=== PATIENT | male | born 1945 | race Caucasian/White ===

== ENCOUNTER → 2016-03-06 | Outpatient (CLI) | payer MEDICARE, OTHER ==
[~2016-03-06] MED LIST: AFRI0.052; AFRI0.056; ALDA25TA2 PO; ALLO100T PO; ALLO15TA PO; ASPI81TA85 PO; CARV3.12 PO; CARV6.25 PO; CEFD300CAP PO; CIPR500T89 PO; CORD200T PO; CORE6.25 PO; DESL5TAB4 PO; DOXY10CA PO; ELIQ5TAB PO; FLAG500T PO; FLON1SPR; FOSI10TA10 PO; FURO40TA2 PO; GLUC15002 PO; GLUC750T22 PO; K-TA10TA2 PO; LASI40TA PO; LEVA500T PO; OMEP40CA2 PO; OXYC-517 PO; PRIL20CA9 PO; PRIN5TAB PO; PROT1TAB2 PO; SENN-23 PO; SIMV20TA2 PO; SIMV40TA2 PO; SING10TA32 PO; TYLE650T30 PO; VALS1TAB49 PO; XARE10TA PO; ZYLO300T4 PO; ZYRT10TA2 PO
--- NOTE | 2016-03-06 12:30 | REP ---
PA and lateral chest: Comparison is 01/21/2016. There is cardiomegaly, unchanged. There is a triple lead biventricular pacemaker, unchanged. Previously there were interstitial and alveolar infiltrates. These have decreased and are predominantly interstitial infiltrates today. No pleural effusion. The kelly, mediastinum, bony thorax are unremarkable. Impression: Improved bilateral infiltrates. Cardiomegaly and triple lead biventricular pacemaker are again noted, unchanged Signed by Juan Nunez MD 03/06/2016 12:21 P
== END ==
LOC: M RAD 11:15
PROVIDERS: ATTEND Internal Medicine Pulmonary Disease
DX: R91.8 Other nonspecific abnormal finding of lung field (principal); I51.7 Cardiomegaly

== ENCOUNTER → 2016-04-20 | Outpatient (CLI) | payer MEDICARE, OTHER ==
--- NOTE | 2016-04-20 15:24 | REP ---
CHEST X-RAY: Two views. HISTORY: Abnormal lung butcher. COMPARISON STUDY: March 06, 2016. FINDINGS: A multilead pacemaker is seen in the right heart via the left side as before. Heart is mildly enlarged unchanged. Pulmonary vasculature is somewhat cephalized. Interstitial markings are prominent bilaterally and diffusely. This is a little more prominent than on the prior study. There is no evidence of pleural effusion. No focal infiltrate is seen. IMPRESSION: Cardiomegaly. Pacemaker. Diffusely increased interstitial markings, somewhat more pronounced than on the March 06, 2016 prior study. Interstitial edema versus chronic interstitial disease. No pleural effusion noted. Signed by Jorge Harley MD 04/20/2016 05:39 P
== END ==
LOC: M SMT 11:44
PROVIDERS: ATTEND Internal Medicine Pulmonary Disease
DX: R91.8 Other nonspecific abnormal finding of lung field (principal); I51.7 Cardiomegaly; Z95.0 Presence of cardiac pacemaker

== ENCOUNTER → 2016-06-05 | Outpatient (CLI) | payer MEDICARE, OTHER ==
--- NOTE | 2016-06-05 13:10 | REP ---
CHEST, TWO VIEWS: Two views of the chest are performed and compared to multiple prior exams most recently 04/20/2016. There are diffuse increased interstitial markings which are stable. There is mild cardiomegaly. Mediastinal silhouette is unchanged. Left dual lead pacemaker is again noted. There are degenerative changes of the spine. IMPRESSION: Stable exam. Signed by Juan Ross MD 06/05/2016 05:43 P
== END ==
LOC: M SMT 11:24
PROVIDERS: ATTEND Internal Medicine Pulmonary Disease
DX: R91.8 Other nonspecific abnormal finding of lung field (principal)

== ENCOUNTER → 2016-07-18 | Outpatient (REF) | payer MEDICARE, OTHER | LOC: M LAB REF 17:33 | PROVIDERS: ATTEND Otolaryngology | DX: D37.05 Neoplasm of uncertain behavior of pharynx (principal) ==

== ENCOUNTER → 2016-07-24 | Outpatient (CLI) | payer MEDICARE, OTHER ==
--- NOTE | 2016-07-24 16:18 | REP ---
CT CHEST WITHOUT CONTRAST: REASON: Followup alveolar opacities. COMPARISON: Multiple, the latest 10/19/2015. There is mediastinal and suspected right hilar adenopathy status quo. The mediastinal adenopathy is particular to the right paratracheal region. There are no pleural or pericardial effusions. There is no change in a appearance of the imaged upper abdomen or imaged osseous structures. Evaluation of the lung butcher again show scattered interstitial and particularly air space opacities but significantly improved compared to the prior exam. Although these opacities could obscure a small but significant nodule or small spiculated lesion, none are seen. IMPRESSION:1. Adenopathy as described above. 2. Lung field improvement as described above. Continued surveillance is suggested. Signed by Mendez Littlejohn DO 07/24/2016 05:04 P
== END ==
LOC: M RAD 12:46
PROVIDERS: ATTEND Internal Medicine Pulmonary Disease
DX: R91.8 Other nonspecific abnormal finding of lung field (principal)

== ENCOUNTER → 2016-07-25 | Outpatient (CLI) | payer MEDICARE, OTHER ==
[~2016-07-25] MED LIST changes: +AMOX500C PO; +CIPR-249 PO; -CIPR500T89 PO; +DOXY100T2 PO; -DOXY10CA PO; -FOSI10TA10 PO; +FOSI10TA2 PO; +LEVA1TAB2 PO; -LEVA500T PO; +SILV40CR EXT
[2016-07-25 14:18] LABS: BLOOD UREA NITROGEN 24 MG/DL (7-18); CREATININE FOR GFR 1.01 MG/DL (0.70-1.30); GLOMERULAR FILTRATION RATE > 60.0 (>49)
== END ==
LOC: M LAB 12:07
PROVIDERS: ATTEND Otolaryngology
DX: D37.05 Neoplasm of uncertain behavior of pharynx (principal)

== ENCOUNTER → 2016-07-25 | Outpatient (CLI) | payer MEDICARE, OTHER | LOC: M LAB 12:10 | PROVIDERS: ATTEND Urology | DX: Z85.46 Personal history of malignant neoplasm of prostate (principal); D37.05 Neoplasm of uncertain behavior of pharynx ==

== ENCOUNTER → 2016-07-27 | Outpatient (CLI) | payer MEDICARE, OTHER ==
[~2016-07-27] MED LIST changes: -AMOX500C PO; -CIPR-249 PO; +CIPR500T89 PO; -DOXY100T2 PO; +DOXY10CA PO; +FOSI10TA10 PO; -FOSI10TA2 PO; +ISOVUE-370 76% 100ML VIAL (Q9967) As Ordered ONE; -LEVA1TAB2 PO; +LEVA500T PO; -SILV40CR EXT
--- NOTE | 2016-07-27 11:49 | REP ---
REASON: Pharyngeal neoplasm. COMPARISON: None. CONTRAST: 100 mL Isovue 370. There is abnormal soft tissue enhancement and thickening in the right neck supraglottic region which is deviating the airway to the left. This area measures approximately 2.8 x 2.3 x 2.9 cm. This mass fills a portion of the right parapharyngeal space and abuts the medial right environmental engineering manager space. The pharyngomucosal space is compressed by the afore mentioned mass on the right. The right carotid and parotid spaces are uninsulted. The prevertebral and paraspinal component of the perivertebral space are within normal limits. The suprahyoid left neck spaces are unremarkable. The infrahyoid neck spaces are within normal limits including the posterior cervical space. IMPRESSION: Enhancing right parapharyngeal/supraglottic mass as described above. Signed by Mendez Littlejohn DO 07/27/2016 12:07 P
== END ==
LOC: M RAD 08:04
PROVIDERS: ATTEND Otolaryngology
DX: D37.05 Neoplasm of uncertain behavior of pharynx (principal)
CPT/HCPCS: 70491; Q9967

== ENCOUNTER → 2016-08-16 | Outpatient (CLI) | payer MEDICARE, OTHER ==
[~2016-08-16] MED LIST changes: +AMOX500C PO; +CIPR-249 PO; -CIPR500T89 PO; +DOXY100T2 PO; -DOXY10CA PO; -FOSI10TA10 PO; +FOSI10TA2 PO; -ISOVUE-370 76% 100ML VIAL (Q9967) As Ordered ONE; +LEVA1TAB2 PO; -LEVA500T PO; +SILV40CR EXT
--- NOTE | 2016-08-16 21:40 | REP ---
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 Comparisons: Comparison CT study of the chest and neck from July of 2016. TECHNIQUE: 48 minutes following the intravenous injection of a 9.8 mCi dose of F-18 FDG, three-dimensional PET scintigraphy is acquired from the skull base to the proximal thighs. Triplanar noncontrast CT scanning is acquired through the same anatomic range for attenuation correction, and image registration with scan parameters optimized to minimize radiation exposure to the patient. PET scintigraphy and CT datasets were fused and displayed on a workstation with multiplanar and projection display capability. PET/CT Findings: The known right tonsillar mass is quite hypermetabolic with maximum standard uptake value 18.8. The hypermetabolic mass lesion measures 2.9 cm in greatest diameter. This corresponds to the soft tissue mass in the right tonsillar soft tissues on recent CT study. There is no abnormal agustín uptake seen. There is mild tracer uptake in the left tonsil soft tissues without evidence of mass effect. Maximum standard uptake value here is 4.7. This may be normal variant. No other abnormal head and neck uptake is seen. In the chest, there is a right pretracheal lymph node, which is hypermetabolic showing maximum standard uptake value of 4.8. There is AP window region hypermetabolic agustín uptake, maximum standard uptake value 3.3. These lymph nodes are visible on recent CT study. There is mildly hypermetabolic subcarinal uptake in the same level of avidity, SUV 3.3. Right hilar agustín uptake, maximum standard uptake value 3.5. There is some nonhypermetabolic pulmonary parenchymal uptake in the lower lobes bilaterally, which is patchy. This corresponds with some interstitial infiltrate pattern in the lung butcher fairly extensively on accompanying CT. Interstitial disease is also noted on July 24, 2016 CT. These changes are nonspecific, but may be inflammatory. I note that there was adenopathy even more prominent along with bilateral pleural effusions and some interstitial changes in the lungs on chest CT study from October 2013. Granulomatous disease such as sarcoidosis is a possibility for the chest findings. In the abdomen and pelvis, normal hepatic, splenic, gastrointestinal and genitourinary FDG accumulation is seen. No abnormal abdominal or pelvic FDG accumulation is appreciated. Impression: The patient's known malignant mass in the right tonsillar soft tissues is quite hypermetabolic. No abnormal agustín uptake is seen. There is equivocal uptake in the contralateral tonsil on the left. There are multiple agustín foci and some parenchymal uptake in the chest, mediastinum, and hilar regions bilaterally. This is nonspecific and may be inflammatory, granulomatous, or conceivably although less likely, metastatic. Signed by Jorge Harley MD 08/17/2016 09:33 A
== END ==
LOC: M PLARAD 10:49
PROVIDERS: ATTEND Physician Assistant Medical
DX: C14.0 Malignant neoplasm of pharynx, unspecified (principal)
CPT/HCPCS: 78815; A9552

== ENCOUNTER → 2016-08-22 | Outpatient (CLI) | payer MEDICARE, OTHER ==
--- NOTE | 2016-08-23 08:32 | RADONC ---
RADIATION ONCOLOGY CONSULTATION NOTE: DATE: 08/22/2016 CHART NUMBER: [id number]. DIAGNOSIS: Tonsillar cancer. STAGE: II, T2N0Mx ECOG PERFORMANCE STATUS: 1. CONSULTATION NOTE: Mr. 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 HISTORY OF PRESENT ILLNESS: The patient was in his usual state of health but began developing some difficulty with chewing and swallowing. Reports that his teeth have been loose and falling out in the right molar area. The patient was referred to Dr. Woods who found an ulcerative lesion measuring approximately 3 cm in the patient's right anterior tonsillar pillar. On 07/18/2016, the patient underwent a right oropharyngeal mass biopsy and pathology revealed a papillary squamous cell carcinoma, which was HPV positive. A CT scan was done on 08/16/2016 that showed a 2.8 cm x 2.9 cm x 2.3 cm hypermetabolic area in the right tonsillar region. The SUV value was 18.8. There was no abnormal agustín uptake noted. There was some mild tracer uptake in the left tonsillar soft tissues without evidence of mass effect. The maximum standard uptake value was 4.7 and was thought to be a normal variant. Of note, there were right pretracheal lymph nodes, which were hypermetabolic with an SUV value of 4.8. It was an AP window region hypermetabolic agustín uptake as well with a SUV value of 3.3. There was some subcarinal uptake within an SUV value of 3.3 and a right hilar agustín uptake with an SUV value of 3.5. There was noted to be interstitial change in the lungs on a CT scan done in October 2013. Granulomatous disease such as sarcoidosis was a possibility for the chest findings. These were not thought to be metastatic. The patient is now presenting to us for discussion of his therapeutic options including definitive radiation therapy with IMRT/IGRT combined with chemotherapy. PAST MEDICAL HISTORY: The patient's past medical history is positive for a pacemaker. He has hypertension and arthritis. He had prostate cancer in the past with a prostatectomy. ALLERGIES: The patient is allergic to LATEX and AMIODARONE. SOCIAL HISTORY: The patient has smoked 1 pack of cigarettes a day for 38 years. He quit in 2006. He does not abuse alcohol. FAMILY HISTORY: The patient's family history is positive for a father with lung cancer. REVIEW OF SYSTEMS: The patient's review of systems is positive for dental problems, generalized weakness in his arms and legs, some anxiety and physical limitations secondary to upper leg weakness. He denies nausea, vomiting, fevers, chills, night sweats, diplopia, headaches, anorexia, weight loss, visual disturbances, chest pain, shortness of breath, urinary or bowel difficulties, bone pain or neurological problems. PHYSICAL EXAMINATION: The patient is a well-developed, well-nourished, white male in no acute distress. HEENT exam is normocephalic, atraumatic. Extraocular movements are intact. There is a 3 cm right tonsillar lesion, which appears to extend to the base of tongue. It is ulcerated. There are no other lesions present in the patient's oral cavity. He has poor dentition for the few remaining teeth. There is no palpable preauricular, cervical, supraclavicular, infraclavicular, or axillary lymphadenopathy present. His lungs are clear to auscultation and percussion. His heart has a regular rate and rhythm. His abdomen is benign with no splenomegaly, masses or tenderness. MEDICAL NECESSITY: IMRT/IGRT is clinically indicated for the highly conformal dose planning required. The target volume is in close proximity to critical structures, such as the normal brain, brainstem, eyes, optic nerves, spinal cord, parotid glands, and mandible. The volume of interest must be covered with narrow margins to adequately protect immediately adjacent structures. The plan requires interpretation of complex testing such as CT localization. As noted above, special planning (IMRT) and localizing (IGRT) is required and essential to maximally protect sensitive normal tissue structures which cannot be accomplished using conventional 3-dimensional planning. IMAGING: I have personally reviewed the patient's PET scan done 08/16/2016, which shows the hypermetabolic right tonsillar mass. ASSESSMENT: Clearly, Mr. Katz is a candidate for definitive external beam radiation therapy and I have so informed him. I have discussed with the patient in detail the potential benefits as well as possible acute and chronic sequelae of external beam radiation therapy. We discussed logistics of treatment planning, simulation and subsequent fractionated daily radiation treatments. I believe this patient would be a good candidate for definitive treatment with IMRT/IGRT as we would be able to conform our therapy to avoid critical structures such as his spinal column as well as optic nerves, eyes and optic chiasm. Prior to initiation of radiation, his dental work has to be taken care of. He does have rotten teeth, which are loose. Should they fall out or require extraction after the radiation, he would be at risk for radio osteonecrosis . We are therefore setting him up with our nurse navigator to get him scheduled for dental consultation and extraction of the remaining teeth. I also believe this patient would benefit from the placement of a PEG feeding tube. We are setting him up with a consultation with the surgeon to discuss that as well. In addition, I have placed the patient on our discussion list for multidisciplinary tumor conference. Final recommendations will be made at that time. Further, I have set him up to see our medical oncologist to obtain their expert opinion as well. Once these have all been achieved, we will work closely together to coordinate his care. Thank you for allowing us to participate in the care of this very pleasant gentleman. If I could be of any further assistance or provide you with any information, please feel free to contact me anytime. As always, with warm regards. cc: MD Ramesh Bond MD [place], MD
== END ==
LOC: M ONCR 14:13
PROVIDERS: ATTEND Radiology Radiation Oncology
DX: C14.0 Malignant neoplasm of pharynx, unspecified (principal)

== ENCOUNTER → 2016-09-04 | Outpatient (CLI) | payer MEDICARE, OTHER ==
[2016-09-04 10:41] LABS: MEAN CORPUSCULAR HEMOGLOBIN 31.2 pg (27.0-33.0); MEAN CORPUSCULAR HGB CONC 33.7 g/dl (32.0-36.5); MEAN CORPUSCULAR VOLUME 92.5 fl (80.0-96.0); RED CELL DISTRIBUTION WIDTH 13.2 % (11.5-14.5); WHITE BLOOD COUNT 7.4 K/mm3 (4.0-10.0)
[2016-09-04 11:08] LABS: ALBUMIN 3.4 GM/DL (3.2-5.2); ALBUMIN/GLOBULIN RATIO 0.74 (1.00-1.93); ALKALINE PHOSPHATASE 102 U/L (45-117); ALT/SGPT 25 U/L (12-78); ANION GAP 7 MEQ/L (8-16); AST/SGOT 26 U/L (15-37); BILIRUBIN,TOTAL 0.5 MG/DL (0.2-1.0); BLOOD UREA NITROGEN 26 MG/DL (7-18); CALCIUM LEVEL 8.8 MG/DL (8.8-10.2); CARBON DIOXIDE LEVEL 27 MEQ/L (21-32); CHLORIDE LEVEL 104 MEQ/L (98-107); CREATININE FOR GFR 1.01 MG/DL (0.70-1.30); GLOMERULAR FILTRATION RATE > 60.0 (>49); GLUCOSE, FASTING 117 MG/DL (80-110); POTASSIUM SERUM 4.3 MEQ/L (3.5-5.1); SODIUM LEVEL 138 MEQ/L (136-145)
--- NOTE | 2016-09-04 12:53 | REP ---
PA and lateral chest: Comparisons are the PA and lateral chest studies of 06/05/2016 and 08/17/2014. There is a chest CT dated 07/24/2016. The lung butcher are clear. Cardiac size is mildly enlarged, unchanged. There is a triple lead biventricular pacemaker. The kelly, mediastinum, and bony thorax are unchanged and unremarkable. Impression: There are no acute cardiopulmonary findings. There are no masses, nodules or effusions. There is mild cardiomegaly and pacemaker as described. Signed by Juan Nunez MD 09/04/2016 12:45 P
== END ==
LOC: M WUC 09:32
PROVIDERS: ATTEND Family Medicine
DX: C09.9 Malignant neoplasm of tonsil, unspecified (principal); I51.7 Cardiomegaly; Z95.0 Presence of cardiac pacemaker

== ENCOUNTER 2016-09-13 07:40 | Day surgery (SDC) | payer MEDICARE, OTHER ==
[~2016-09-13] VITALS: Ht 175.3 cm; Wt 87.5 kg
[~2016-09-13 07:40] MED LIST changes: -AMOX500C PO; -SILV40CR EXT
[2016-09-13] MEDS ORDERED: dexameTHASONE 4 MG/ML 1ML VIAL (J1100) IV ONE (08:00)
[2016-09-13] MEDS ORDERED: LIDOCAINE 1% MDV 20ML VIAL SC PRN (08:00)
[2016-09-13] MEDS ORDERED: LR 1,000 ML IV ONE (08:00)
[2016-09-13] MEDS ORDERED: LIDOCAINE W/EPINEPHRINE 1% 20ML VIAL As Ordered ONE (09:44)
[2016-09-13] MEDS ORDERED: OXYMETAZOLINE NASAL SPRAY (AFRIN) As Ordered ONE (09:44)
[2016-09-13] MEDS ORDERED: MIDAZOLAM INJ 2 MG/2 ML VIAL (J2250) As Ordered ONE (10:43)
[2016-09-13] MEDS ORDERED: ROCURONIUM BROMIDE 50 MG/5 ML VIAL/SYRINGE As Ordered ONE (10:43)
[2016-09-13] MEDS ORDERED: fentaNYL 250 MCG/5 ML INJECTION (J3010) As Ordered ONE (10:43)
[2016-09-13] MEDS ORDERED: LIDOCAINE 2% INJ 100 MG/5 ML SDV (FOR ANES.) As Ordered ONE (10:44)
[2016-09-13] MEDS ORDERED: PROPOFOL 200 MG/20 ML VIAL As Ordered ONE (10:44)
[2016-09-13] MEDS ORDERED: ONDANSETRON 4MG/2ML VIAL (J2405) As Ordered ONE (10:44)
[2016-09-13] MEDS ORDERED: PHENYLephrine HCL 500 MCG/5 ML (100MCG/ML) SYRINGE (J2370) As Ordered ONE ×3 (10:48→11:15)
[2016-09-13] MEDS ORDERED: HYDROcodone/APAP LIQUID 7.5-325MG 15ML UDC (LORTAB ELIXIR) As Ordered ONE (12:12)
[2016-09-13] MEDS ORDERED: fentaNYL 100 MCG/2 ML INJECTION (J3010) IV PRN (12:15)
[2016-09-13] MEDS ORDERED: LR 1,000 ML IV SCH ×2 (12:15)
[2016-09-13] MEDS ORDERED: ONDANSETRON 4MG/2ML VIAL (J2405) IV PRN (12:15)
[2016-09-13] MEDS ORDERED: HYDROcodone/APAP LIQUID 7.5-325MG 15ML UDC (LORTAB ELIXIR) PO ONE (12:30)
[2016-09-13 14:13] VITALS: BP 134/66
[2016-09-18] MEDS ORDERED: AMOX500C PO (10:44)
--- NOTE | 2016-10-05 08:16 | RO ---
DATE OF PROCEDURE: 09/13/2016 PREOPERATIVE DIAGNOSIS: Right oropharyngeal mass suspicious for malignancy. POSTOPERATIVE DIAGNOSIS: Right oropharyngeal mass suspicious for malignancy. PROCEDURE PERFORMED: Direct suspension microlaryngoscopy with biopsy of the right and left tonsils. SURGEON: Foreign Woods MD DIRT BIKE RACER: ANESTHESIA: General. CLINICAL PREAMBLE: This 71-year-old man presented to the office with a mass of the right tonsil region. Biopsy showed evidence of squamous cell carcinoma cells without clear evidence of deep invasion through the basement membrane. PET scan revealed hypermetabolic activity over the right tonsil as well as over the left tonsil region. Management options including direct suspension microlaryngoscopy with biopsy of both tonsil areas have been discussed with the patient. The patient understood and consented. DESCRIPTION OF PROCEDURE: The patient was identified in preoperative holding and brought to the operating room in stable condition. In supine position on the operating table, the patient received general anesthesia followed by orotracheal intubation without incident. The patient was prepped and draped in the usual fashion for the procedure. Bimanual palpation of the oral tongue, buccal mucosa , posterior pharyngeal was unremarkable. A firm mass was palpated over the right tonsil region extending down to near the junction of the base of the tongue. Palpation of the left tonsil was unremarkable for discrete nodule. A cystic- like mass was however palpated along the inferior aspect of the left tonsil region. The Dedo-Pilling laryngoscope was then introduced. Inspection of mucosa in the oral cavity and oropharynx revealed a fungating mass over the right tonsil region involving the anterior and posterior tonsil pillar. There was no evidence of direct involvement of the base of tongue. The left tonsil was unremarkable in appearance. Inspection of the mucosa of the supraglottis, glottis and the hypopharynx was negative for mucosal lesion. The Arlene-Ramos mouth gag was then inserted and suspended. The biopsy was obtained from the right tonsil mass. The initial biopsy was sent for intra-op frozen section which was reported to be carcinoma with no invasion of the deep region. Additional biopsy was obtained from the tonsil mass. It was sent for the permanent section. A cystic-like mass was identified and marsupialized over the left tonsil region. There was no other suspicious lesion noted. Complete hemostasis was achieved at the end of the procedure. Estimated blood loss was less than 10 mL. No complications encountered. Sponge and instrument counts were correct. General anesthesia was reversed and the patient was extubated and brought to the recovery room in stable condition. LIZZY
[2016-11-20] MEDS ORDERED: SILV40CR EXT (09:03)
== END 2016-09-13 14:13 | disposition home or self-care (01) ==
LOC: M SDC 07:40
PROVIDERS: ATTEND Otolaryngology
DX: C09.9 Malignant neoplasm of tonsil, unspecified (principal); I11.0 Hypertensive heart disease with heart failure; C61 Malignant neoplasm of prostate; L30.9 Dermatitis, unspecified; I48.91 Unspecified atrial fibrillation; R06.02 Shortness of breath; M79.1 Myalgia; R06.83 Snoring; J30.2 Other seasonal allergic rhinitis; Z88.8 Allergy status to other drugs, medicaments and biological substances; Z91.040 Latex allergy status; Z79.899 Other long term (current) drug therapy; Z95.810 Presence of automatic (implantable) cardiac defibrillator
CPT/HCPCS: 31535; 88305; 88331; J1100; J2250; J2370; J2405; J3010

== ENCOUNTER 2016-09-27 10:34 | Outpatient (RCR) | payer MEDICARE, OTHER ==
[~2016-09-27 10:34] MED LIST changes: -SILV40CR EXT
--- NOTE | 2016-09-27 13:25 | RADONC ---
RADIATION ONCOLOGY SIMULATION NOTE: DATE: 09/27/2016 CHART NUMBER: [id number] Mr. Katz was taken to the CT scan for CT simulation of his head and neck field. CT was accomplished without difficulty or discomfort. Radiation treatment planning is underway and radiation treatments will begin subsequently. An immobilization device including a mask was created again without difficulty or discomfort. It will be used throughout the course of treatment. I was physically present throughout the course of CT simulation.
[2016-11-20] MEDS ORDERED: SILV40CR EXT (09:03)
== END 2016-10-05 ==
LOC: M ONCR 10:34
PROVIDERS: ATTEND Radiology Radiation Oncology
DX: C09.9 Malignant neoplasm of tonsil, unspecified (principal)

== ENCOUNTER → 2016-09-27 | Outpatient (CLI) | payer MEDICARE, OTHER ==
[~2016-09-27] MED LIST changes: +AMOX500C PO; +SILV40CR EXT
== END ==
LOC: M RAD 10:21
PROVIDERS: ATTEND Radiology Radiation Oncology
DX: C09.9 Malignant neoplasm of tonsil, unspecified (principal)

== ENCOUNTER 2016-10-02 05:52 | Day surgery (SDC) | payer MEDICARE, OTHER ==
[~2016-10-02] VITALS: Ht 175.3 cm; Wt 87.1 kg
[2016-10-02] MEDS ORDERED: LR 1,000 ML IV SCH ×2 (06:15→08:45)
[2016-10-02] MEDS ORDERED: LIDOCAINE VISCOUS 2% SOLN 15ML UDC As Ordered ONE (07:15)
[2016-10-02] MEDS ORDERED: LIDOCAINE 1% MDV 20ML VIAL As Ordered ONE (07:15)
[2016-10-02] MEDS ORDERED: THROMBIN SOLN 5,000 UNITS VIAL As Ordered ONE (07:15)
[2016-10-02] MEDS ORDERED: EPINEPHrine 1MG/10ML SYRINGE 1.5IN As Ordered ONE (07:15)
[2016-10-02] MEDS ORDERED: MIDAZOLAM INJ 2 MG/2 ML VIAL (J2250) As Ordered ONE (07:20)
[2016-10-02] MEDS ORDERED: LIDOCAINE 2% INJ 100 MG/5 ML SDV (FOR ANES.) As Ordered ONE (07:20)
[2016-10-02] MEDS ORDERED: fentaNYL 250 MCG/5 ML INJECTION (J3010) As Ordered ONE (07:20)
[2016-10-02] MEDS ORDERED: PROPOFOL 200 MG/20 ML VIAL As Ordered ONE (07:20)
[2016-10-02] MEDS ORDERED: ROCURONIUM BROMIDE 50 MG/5 ML VIAL/SYRINGE As Ordered ONE (07:20)
[2016-10-02] MEDS ORDERED: ETOMIDATE INJ 20MG/10ML VIAL As Ordered ONE (07:51)
[2016-10-02] MEDS ORDERED: ONDANSETRON 4MG/2ML VIAL (J2405) As Ordered ONE (07:55)
[2016-10-02] MEDS ORDERED: NEOSTIGMINE 1MG/ML 5 ML SYRINGE (J2710) As Ordered ONE (07:55)
[2016-10-02] MEDS ORDERED: GLYCOPYRROLATE INJ 0.2 MG/ML 2 ML VIAL As Ordered ONE (07:56)
--- NOTE | 2016-10-02 08:40 | RO ---
DATE OF PROCEDURE: 10/02/2016 PREOPERATIVE DIAGNOSIS: Mediastinal and hilar adenopathy. POSTOPERATIVE DIAGNOSIS: Mediastinal and hilar adenopathy. PROCEDURE: Bronchoscopy with endobronchial ultrasound. FINDINGS: Normal smokers airway with mediastinal adenopathy under endobronchial ultrasound. PROCEDURALIST: Yony Kennedy DO SLAB LIFTING ENGINEER: None. ANESTHESIA: General. Please refer to their records. No estimated blood loss. No drains. No observed complications. SPECIMENS OBTAINED: 1. Fine needle aspiration (FNA) subcarinal node. 2. FNA right pretracheal node 4R. DESCRIPTION OF PROCEDURE: After informed consent was reviewed with the patient in the preoperative area he was brought back to OR number eight. General anesthesia was initiated with an 8.5 endotracheal tube. Bronchoscope was then inserted with Cetacaine spray. Additional time out was performed with two patient identifiers, identifying correct site and correct procedure. All airways were viewed, the trachea was midline. The mahesh was sharp without splaying. Right and left mainstem bronchus was normal. RB 1 through 10 and LB 1 through 10 was normal without endobronchial lesions. There was minimal amounts of clear mucus was circular banding and pitting. After inspection of the airway, the bronchoscope was removed and the endobronchial ultrasound was inserted. I first viewed the subcarinal node, which was enlarged to approximately 3.5 cm. Samples were taken of this lesion. On-site cytology was present. After adequate sampling of the subcarinal node, I then viewed the right pretracheal node in the 4R position. Samples were taken of this lymph node. I then viewed the right hilar region; however, I was unable to obtain samples due to a large vessel that was in front of the lymph node. After adequate hemostasis the bronchoscope was removed and the patient was extubated and is in recovery. There were no observed complications. [facility] CENTERJesus
[2016-10-02] MEDS ORDERED: ONDANSETRON 4MG/2ML VIAL (J2405) IV PRN (08:45)
[2016-10-02] MEDS ORDERED: fentaNYL 100 MCG/2 ML INJECTION (J3010) IV PRN (08:45)
[2016-10-02] MEDS ORDERED: PERCOCET 5MG/325MG TAB PO PRN (08:45)
--- NOTE | 2016-10-02 09:41 | REP ---
PORTABLE CHEST X-RAY: Single view. HISTORY: Postop. COMPARISON STUDY: September 04, 2016. Mild to moderate cardiac enlargement is seen. A multilead pacemaker is noted in the right heart via the left side. Oxygen delivery tubing is seen. Pulmonary vascular congestion is observed. There is some fissural thickening on the right. Interstitial markings are slightly prominent similar to the prior study. IMPRESSION: Cardiomegaly with vascular congestion consistent with some degree of CHF. No focal infiltrate. Prominent interstitial markings. Signed by Jorge Harley MD 10/02/2016 02:44 P
[2016-10-02 10:05] VITALS: BP 135/67
[2016-11-20] MEDS ORDERED: SILV40CR EXT (09:03)
== END 2016-10-02 10:15 | disposition home or self-care (01) ==
LOC: M SDC 05:52
PROVIDERS: ATTEND Internal Medicine Pulmonary Disease
DX: R91.8 Other nonspecific abnormal finding of lung field (principal); C14.0 Malignant neoplasm of pharynx, unspecified; R06.00 Dyspnea, unspecified; R94.2 Abnormal results of pulmonary function studies; E88.01 Alpha-1-antitrypsin deficiency; M10.9 Gout, unspecified; I48.91 Unspecified atrial fibrillation; I42.9 Cardiomyopathy, unspecified; R06.02 Shortness of breath; M54.9 Dorsalgia, unspecified; M79.1 Myalgia; R55 Syncope and collapse; T46.2X5S Adverse effect of other antidysrhythmic drugs, sequela; N18.3 Chronic kidney disease, stage 3 (moderate); I13.0 Hypertensive heart and chronic kidney disease with heart failure and stage 1 through stage 4 chronic kidney disease, or unspecified chronic kidney disease; E78.5 Hyperlipidemia, unspecified; C61 Malignant neoplasm of prostate; F41.9 Anxiety disorder, unspecified; I47.1 Supraventricular tachycardia; M16.10 Unilateral primary osteoarthritis, unspecified hip; I50.9 Heart failure, unspecified; J30.2 Other seasonal allergic rhinitis; J39.2 Other diseases of pharynx; Z88.8 Allergy status to other drugs, medicaments and biological substances; Z91.040 Latex allergy status; Z79.899 Other long term (current) drug therapy; Z87.891 Personal history of nicotine dependence; Z95.0 Presence of cardiac pacemaker; Z95.5 Presence of coronary angioplasty implant and graft
CPT/HCPCS: 31629; 31652; 71010; 88172; 88173; 88305; 88313; J2250; J2405; J2710; J3010

== ENCOUNTER 2016-10-06 12:18 | Outpatient (RCR) | payer MEDICARE, OTHER ==
--- NOTE | 2016-10-17 07:53 | RADONC ---
RADIATION ONCOLOGY PROGRESS NOTE: DATE: 10/16/2016 CHART NUMBER: [id number] Mr. Katz is presently at a dose of 800 cGy to his tonsil and is tolerating treatments quite well at this point with no complaints related to his radiation therapy. He is having no tonsil discomfort or other problems. REVIEW OF SYSTEMS: The patient's review of systems is noncontributory. He denies nausea, vomiting, fevers, chills, night sweats, diplopia, headaches, anxiety or depression, anorexia, weight loss, visual disturbances, chest pain, urinary or bowel difficulties, bone pain, or neurological problems. PHYSICAL EXAMINATION: The patient's skin is in good condition with no evidence of radiation change present. There is no moist or dry desquamation. The remainder of his physical exam remains unchanged. Mr. Katz is tolerating treatments quite well and radiation will continue as scheduled.
--- NOTE | 2016-10-24 06:17 | RADONC ---
RADIATION ONCOLOGY PROGRESS NOTE DATE: 10/23/2016 CHART NUMBER: [id number]. PROGRESS NOTE: Mr. Katz is presently at a dose of 1980 cGy to his right tonsil and 1800 cGy a to his right lymph nodes and is tolerating treatments quite well at this point with no complaints related to his radiation therapy other than some nauseousness. REVIEW OF SYSTEMS: The patient's review of systems is positive for nauseousness but is otherwise noncontributory. Denies nausea, vomiting, fevers, chills, night sweats, diplopia, headaches, anxiety or depression, anorexia, weight loss, visual disturbances, chest pain, urinary or bowel difficulties, bone pain, or neurological problems. PHYSICAL EXAMINATION: The patient's skin is in good condition with no evidence of radiation change present. There is no moist or dry desquamation. The remainder of his physical exam remains unchanged. Mr. Katz is tolerating treatments quite well and radiation will continue as scheduled.
--- NOTE | 2016-10-31 07:47 | RADONC ---
RADIATION ONCOLOGY PROGRESS NOTE: DATE: 10/30/2016 CHART NUMBER: [id number] Mr. Katz is presently at a dose of 3080 cGy to his head and neck and is overall tolerating treatments quite well. He is complaining about some discomfort upon swallowing. REVIEW OF SYSTEMS: The patient's review of systems is positive for discomfort with swallowing but is otherwise noncontributory. He denies nausea, vomiting, fevers, chills, night sweats, diplopia, headaches, anxiety or depression, anorexia, weight loss, visual disturbances, chest pain, urinary or bowel difficulties, bone pain, or neurological problems. PHYSICAL EXAMINATION: The patient's weight today is down approximately 5 pounds to 184.6 pounds. This is a total of a 10 pounds loss since consultation. His skin reveals no evidence of moist or dry desquamation. There is some mild oral cavity mucositis. The remainder of his physical exam remains unchanged. Mr. Katz is tolerating his treatments fairly well and radiation will continue as scheduled. The patient does not have a feeding tube at this point. I have discussed the benefits of a feeding tube with him and he will continue to consider it for a future date.
--- NOTE | 2016-11-06 10:22 | RADONC ---
RADIATION ONCOLOGY PROGRESS NOTE DATE: 11/06/2016 CHART NUMBER: [id number] Mr. Katz is presently at a dose of 4180 cGy to his tonsil and is tolerating treatments quite well at this point with no significant difficulties related to his radiation therapy. He is having no increased difficulty swallowing or sore throat. The patient's review of systems is positive for sore some mucositis but is otherwise noncontributory. He denies nausea, vomiting, fevers, chills, night sweats, diplopia, headaches, anxiety or depression, anorexia, weight loss, visual disturbances, chest pain, urinary or bowel difficulties, bone pain, or neurological problems. PHYSICAL EXAMINATION: The patient's skin is in good condition with no evidence of radiation change present. There is no moist or dry desquamation. His oral cavity shows some mucositis but overall is in good condition. His weight is stable today at 184.6 pounds. The remainder of his physical exam also remains unchanged. Mr. Katz is tolerating his treatments quite well and radiation will continue as scheduled.
[2016-11-20] MEDS ORDERED: SILV40CR EXT (09:03)
== END 2016-11-04 ==
LOC: M ONCR 12:18
PROVIDERS: ATTEND Radiology Radiation Oncology
DX: C09.9 Malignant neoplasm of tonsil, unspecified (principal)

== ENCOUNTER → 2016-12-27 | Outpatient (CLI) | payer MEDICARE, OTHER ==
[~2016-12-27] MED LIST changes: +SILV40CR EXT
--- NOTE | 2016-12-29 07:03 | RADONC ---
RADIATION ONCOLOGY FOLLOWUP NOTE DATE: 12/27/2016 CHART NUMBER: [id number] DIAGNOSIS: Right tonsillar cancer. STAGE: II, T2N0Mx. ECOG PERFORMANCE STATUS: 0 FOLLOWUP NOTE Mr. 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 The patient presents today reporting that he is doing quite well with no complaints at this time related to his radiation therapy or disease. He has no difficulty significant difficulty swallowing or pain. He is not eating steak, but otherwise he is eating everything else. REVIEW OF SYSTEMS: The patient's review of systems is noncontributory. He denies nausea, vomiting, fevers, chills, night sweats, diplopia, headaches, anxiety or depression, anorexia, weight loss, visual disturbances, chest pain, urinary or bowel difficulties, bone pain or neurological problems. PHYSICAL EXAMINATION: The patient is a well-developed, well-nourished white male in no acute distress. His weight today is 180.6 pounds. That is down a total of just 2 pounds since completion of treatment. HEENT exam is normocephalic, atraumatic. Extraocular movements are intact. There is no palpable cervical, supraclavicular, infraclavicular or axillary lymphadenopathy present. His oral cavity examination reveals no evidence of disease at this time. There is no nodularity or ulceration. His involved tonsil appears to be healing. His lungs are clear to auscultation and percussion. His heart has a regular rate and rhythm. His abdomen is benign with no splenomegaly, masses or tenderness. ASSESSMENT: The patient is clinically doing quite well at this time. He is scheduled to see Dr. Woods next week and will be following him every 6 weeks or so. I have therefore set him up to see me for routine followup in six months' time. cc: MD Ramesh Bond MD [place], MD
== END ==
LOC: M ONCR 09:04
PROVIDERS: ATTEND Radiology Radiation Oncology
DX: C09.9 Malignant neoplasm of tonsil, unspecified (principal)

== ENCOUNTER → 2017-01-01 | Outpatient (CLI) | payer MEDICARE, OTHER ==
--- NOTE | 2017-01-01 12:40 | REP ---
Clinical: Abnormal pulmonary findings. Comparison: 07/24/2016. Findings: The small to moderate bilateral pleural effusions are appreciated (right greater than left) which represents a new finding compared to prior examination. Mild chronic diffuse interstitial and alveolar opacities remain relatively stable although subtle superimposed acute atelectasis cannot be excluded. No obvious consolidation, nodule or mass lesion is appreciated. However lesions may be obscured by the chronic interstitial changes as well as pleural effusions. Mediastinal and hilar adenopathy is again identified with pretracheal lymph node measuring up to 2 cm short axis diameter. Atherosclerotic changes to the thoracic aorta noted without aneurysm. Cardiomegaly is appreciated along with pacemaker in satisfactory position. Musculoskeletal structures without focal osseous abnormality. Upper abdomen demonstrates normal bilateral adrenal glands. Impression: 1. Small to moderate bilateral pleural effusions and passive atelectasis represents a new finding compared to prior examination. Findings may be related to CHF/pulmonary edema. 2. Mild diffuse chronic interstitial and alveolar opacities similar to prior examination although subtle superimposed acute atelectasis cannot be excluded. Signed by Jameson Lizama MD 01/01/2017 12:31 P
== END ==
LOC: M RAD 11:42
PROVIDERS: ATTEND Internal Medicine Pulmonary Disease
DX: R91.8 Other nonspecific abnormal finding of lung field (principal); J90 Pleural effusion, not elsewhere classified

== ENCOUNTER → 2017-01-24 | Outpatient (CLI) | payer MEDICARE, OTHER | LOC: M WUC 09:23 | PROVIDERS: ATTEND Urology | DX: Z08 Encounter for follow-up examination after completed treatment for malignant neoplasm (principal); Z85.46 Personal history of malignant neoplasm of prostate ==

== ENCOUNTER → 2017-01-24 | Outpatient (CLI) | payer MEDICARE, OTHER ==
--- NOTE | 2017-01-25 07:09 | REP ---
PET/CT: History: Restaging squamous cell carcinoma of the right anterior tonsillar pillar with right supraglottic/parapharyngeal mass. Comparisons: Comparison PET-CT study August 16, 2016. TECHNIQUE: 56 minutes following the intravenous injection of a 10.6 mCi dose of F-18 FDG, three-dimensional PET scintigraphy is acquired from the skull base to the proximal thighs. Triplanar noncontrast CT scanning is acquired through the same anatomic range for attenuation correction, and image registration with scan parameters optimized to minimize radiation exposure to the patient. PET scintigraphy and CT datasets were fused and displayed on a workstation with multiplanar and projection display capability. PET/CT Findings: There is no longer abnormal hypermetabolic uptake in the head and neck soft tissues. The previously noted right and left tonsillar hypermetabolic uptake are resolved. No abnormal agustín uptake is seen in the neck. Mildly hypermetabolic agustín uptake is again noted in the chest similar to the prior study. Maximum standard uptake values in the lymph node foci in the chest on the order of 3.5. These nodes appear unchanged on accompanying CT. The previously noted low-level parenchymal uptake in the lungs is less prominent. Pacemaker is noted in the right heart. No abnormal abdominal or pelvic hypermetabolic uptake is seen. Impression: Previously noted hypermetabolic uptake in the neck has resolved. Mild agustín FDG accumulation persists in the hilar and mediastinal lymph nodes. This may be granulomatous. It is essentially unchanged. Signed by Jorge Harley MD 01/25/2017 08:11 A
== END ==
LOC: M PLARAD 10:21
PROVIDERS: ATTEND Otolaryngology
DX: C09.9 Malignant neoplasm of tonsil, unspecified (principal); Z85.46 Personal history of malignant neoplasm of prostate
CPT/HCPCS: 36415; 78815; 84153; A9552

== ENCOUNTER → 2017-06-27 | Outpatient (CLI) | payer MEDICARE, OTHER | LOC: M ONCR 09:03 | DX: C09.9 Malignant neoplasm of tonsil, unspecified (principal) | CPT/HCPCS: G0463 ==

== ENCOUNTER → 2017-08-21 | Outpatient (CLI) | payer MEDICARE, OTHER ==
[2017-08-21 13:35] LABS: PROSTATIC SPECIFIC AG MONITOR < 0.01 NG/ML (< 4.0)
== END ==
LOC: M WUC 09:23
DX: Z85.46 Personal history of malignant neoplasm of prostate (principal)
CPT/HCPCS: 84153

== ENCOUNTER → 2017-12-26 | Outpatient (CLI) | payer MEDICARE, OTHER | LOC: M ONCR 09:14 | DX: C09.9 Malignant neoplasm of tonsil, unspecified (principal) | CPT/HCPCS: G0463 ==

== ENCOUNTER → 2018-02-26 | Outpatient (CLI) | payer MEDICARE, OTHER ==
[~2018-02-26] MED LIST changes: -LASI40TA PO; +LASI40TA9 PO; -ZYLO300T4 PO; +ZYLO300T6 PO; +ZYRT10CA5 PO; -ZYRT10TA2 PO
== END ==
LOC: M WUC 11:21
PROVIDERS: ATTEND Urology
DX: Z85.46 Personal history of malignant neoplasm of prostate (principal)

== ENCOUNTER → 2018-04-16 | Outpatient (CLI) | payer MEDICARE, OTHER ==
[2018-04-16 12:20] LABS: BASO # 0.1 10^3/uL (0.0-0.2); BASO % 0.7 % (0.0-1.0); EOS # 0.4 10^3/uL (0.0-0.50); EOS % 5.8 % (0.0-3.0); HEMATOCRIT 41.5 % (42.0-52.0); HEMOGLOBIN 13.5 g/dl (13.5-17.5); LYMPH # 0.7 10^3/uL (1.5-4.5); LYMPH % 10.3 % (24.0-44.0); MEAN CORPUSCULAR HEMOGLOBIN 31.3 pg (27.0-33.0); MEAN CORPUSCULAR HGB CONC 32.5 g/dl (32.0-36.5); MEAN CORPUSCULAR VOLUME 96.1 fl (80.0-96.0); MONO # 0.6 10^3/uL (0.0-0.8); MONO % 8.6 % (0.0-5.0); NEUTROPHILS # 5.3 10^3/uL (1.8-7.7); NEUTROPHILS % 74.3 % (36.0-66.0); PLATELET COUNT, AUTOMATED 161 10^3/uL (150-450); RED BLOOD COUNT 4.32 10^6/uL (4.30-6.10); WHITE BLOOD COUNT 7.1 10^3/uL (4.0-10.0)
[2018-04-16 12:59] LABS: ALBUMIN 3.9 GM/DL (3.2-5.2); ALT/SGPT 33 U/L (12-78); BILIRUBIN,TOTAL 0.9 MG/DL (0.2-1.0); BLOOD UREA NITROGEN 22 MG/DL (7-18); CALCIUM LEVEL 8.8 MG/DL (8.8-10.2); CARBON DIOXIDE LEVEL 28 MEQ/L (21-32); CHLORIDE LEVEL 107 MEQ/L (98-107); CHOLESTEROL LEVEL 184 MG/DL (<200); CHOLESTEROL RISK RATIO 3.016 (<5); CREATININE FOR GFR 1.17 MG/DL (0.70-1.30); GLOMERULAR FILTRATION RATE > 60.0 (>42); GLUCOSE, FASTING 101 MG/DL (70-100); HDL CHOLESTEROL 61 MG/DL (>40); LDL CHOLESTEROL 107 MG/DL (<100); NON-HDL-C 123 MG/DL; POTASSIUM SERUM 4.6 MEQ/L (3.5-5.1); SODIUM LEVEL 141 MEQ/L (136-145); TOTAL PROTEIN 7.2 GM/DL (6.4-8.2); TRIGLYCERIDES LEVEL 78 MG/DL (<150); URIC ACID 7.8 MG/DL (3.5-7.2)
== END ==
LOC: M WUC 09:22
PROVIDERS: ATTEND Family Medicine
DX: I10 Essential (primary) hypertension (principal)

== ENCOUNTER → 2018-06-19 | Outpatient (CLI) | payer MEDICARE, OTHER ==
[~2018-06-19] MED LIST changes: +CEFD300C41 PO; -CEFD300CAP PO
--- NOTE | 2018-06-20 06:36 | RADONC ---
RADIATION ONCOLOGY FOLLOWUP NOTE DATE: 06/19/2018 CHART #: [id number] DIAGNOSIS: Right tonsillar cancer. STAGE: II, T2N0M0. ECOG PERFORMANCE STATUS: 0. Mr. Katz is a 72-year-old man with a diagnosis of a papillary squamous cell carcinoma of his right anterior tonsillar pillar. He presents today after having completed a course of radiotherapy, approximately 1 year and 7 months, with treatments ending in 2017. REVIEW OF SYSTEMS: The patient reports no specific problems related to his disease or to his treatments. He specifically denies any nausea, vomiting, coughing, sputum production or hemoptysis. His mouth remains dry, but he has good taste function. He has no dysphagia and he does not complain of any aches and pains in the skeletal system. EXAMINATION FINDINGS: He is a well-developed male in no acute distress. HEENT: Normocephalic, atraumatic. EOMs intact. The patient's oral cavity fails to reveal any evidence of recurrent lesions. There is no palpable peripheral lymphadenopathy. Lungs: Clear. Heart: Regular. IMPRESSION: Clinically PHILIPP. PLAN: He sees Dr. Woods on a regular basis and we would like to see him for routine followup in about 6 months. He was encouraged to return to his referring physicians as per their directions and instructions. cc: MD Ramesh Bond MD [place], MD
== END ==
LOC: M ONCR 09:00
PROVIDERS: ATTEND Radiology Radiation Oncology
DX: Z92.3 Personal history of irradiation (principal); Z85.818 Personal history of malignant neoplasm of other sites of lip, oral cavity, and pharynx

== ENCOUNTER → 2019-08-26 | Outpatient (CLI) | payer MEDICARE, OTHER ==
[~2019-08-26] MED LIST changes: -ASPI81TA85 PO; +ASPI81TA86 PO; +DESL1TAB3 PO; -DESL5TAB4 PO; -FOSI10TA2 PO; +FOSI10TA4 PO; -OMEP40CA2 PO; +OMEP40CA97 PO; -SIMV20TA2 PO; +SIMV20TA22 PO; -SIMV40TA2 PO; +SIMV40TA20 PO; -VALS1TAB49 PO; +VALS40TA9 PO
== END ==
LOC: M WUC 08:34
PROVIDERS: ATTEND Nurse Practitioner Women's Health
DX: Z85.46 Personal history of malignant neoplasm of prostate (principal)

== ENCOUNTER → 2020-03-11 | Outpatient (CLI) | payer MEDICARE, OTHER ==
[2020-03-11 10:17] LABS: HEMATOCRIT 41.1 % (42.0-52.0); HEMOGLOBIN 13.2 g/dl (13.5-17.5); MEAN CORPUSCULAR HEMOGLOBIN 30.8 pg (27.0-33.0); MEAN CORPUSCULAR HGB CONC 32.1 g/dl (32.0-36.5); PLATELET COUNT, AUTOMATED 154 10^3/uL (150-450); RED BLOOD COUNT 4.28 10^6/uL (4.30-6.10)
[2020-03-11 10:50] LABS: ALT/SGPT 33 U/L (12-78); BILIRUBIN,TOTAL 0.6 MG/DL (0.2-1.0); BLOOD UREA NITROGEN 33 MG/DL (7-18); CARBON DIOXIDE LEVEL 26 MEQ/L (21-32); CHLORIDE LEVEL 107 MEQ/L (98-107); CHOLESTEROL LEVEL 201 MG/DL (<200); CHOLESTEROL RISK RATIO 3.589 (<5); CREATININE FOR GFR 1.25 MG/DL (0.70-1.30); GLOMERULAR FILTRATION RATE > 60.0 (>42); GLUCOSE, FASTING 98 MG/DL (70-100); HDL CHOLESTEROL 56 MG/DL (>40); LDL CHOLESTEROL 126 MG/DL (<100); NON-HDL-C 145 MG/DL; POTASSIUM SERUM 4.6 MEQ/L (3.5-5.1); PROSTATIC SPECIFIC AG MONITOR < 0.01 NG/ML (< 4.00); SODIUM LEVEL 140 MEQ/L (136-145); TOTAL PROTEIN 7.1 GM/DL (6.4-8.2); TRIGLYCERIDES LEVEL 96 MG/DL (<150); URIC ACID 7.5 MG/DL (3.5-7.2)
== END ==
LOC: M WUC 08:39
PROVIDERS: ATTEND Family Medicine
DX: C61 Malignant neoplasm of prostate (principal); I10 Essential (primary) hypertension; M10.9 Gout, unspecified

== ENCOUNTER → 2020-09-13 | Outpatient (CLI) | payer MEDICARE, OTHER ==
[~2020-09-13] MED LIST changes: -FOSI10TA4 PO; +FOSI10TA44 PO; +OMEP40CA4 PO; -OMEP40CA97 PO
[2020-09-13 13:41] LABS: CALCIUM LEVEL 8.6 MG/DL (8.8-10.2); CREATININE FOR GFR 1.37 MG/DL (0.70-1.30); GLOMERULAR FILTRATION RATE 54.2 (>42); POTASSIUM SERUM 4.4 MEQ/L (3.5-5.1); URIC ACID 6.2 MG/DL (3.5-7.2)
== END ==
LOC: M WUC 08:13
PROVIDERS: ATTEND Family Medicine
DX: R06.02 Shortness of breath (principal)

== ENCOUNTER → 2021-02-21 | Outpatient (CLI) | payer MEDICARE, OTHER ==
[2021-02-21 10:58] LABS: HEMATOCRIT 39.1 % (42.0-52.0); HEMOGLOBIN 12.5 g/dl (13.5-17.5); MEAN CORPUSCULAR HEMOGLOBIN 31.2 pg (27.0-33.0); MEAN CORPUSCULAR VOLUME 97.5 fl (80.0-96.0); PLATELET COUNT, AUTOMATED 163 10^3/uL (150-450); RED BLOOD COUNT 4.01 10^6/uL (4.30-6.10); WHITE BLOOD COUNT 6.9 10^3/uL (4.0-10.0)
[2021-02-21 11:30] LABS: ALBUMIN 3.7 GM/DL (3.2-5.2); ALT/SGPT 33 U/L (12-78); BILIRUBIN,TOTAL 0.6 MG/DL (0.2-1.0); BLOOD UREA NITROGEN 32 MG/DL (7-18); CALCIUM LEVEL 8.9 MG/DL (8.8-10.2); CARBON DIOXIDE LEVEL 25 MEQ/L (21-32); CHLORIDE LEVEL 107 MEQ/L (98-107); CHOLESTEROL LEVEL 194 MG/DL (<200); CHOLESTEROL RISK RATIO 3.803 (<5); GLOMERULAR FILTRATION RATE 57.6 (>42); GLUCOSE, FASTING 112 MG/DL (70-100); HDL CHOLESTEROL 51 MG/DL (>40); LDL CHOLESTEROL 118 MG/DL (<100); NON-HDL-C 143 MG/DL; POTASSIUM SERUM 4.3 MEQ/L (3.5-5.1); SODIUM LEVEL 140 MEQ/L (136-145); TOTAL PROTEIN 7.4 GM/DL (6.4-8.2); TRIGLYCERIDES LEVEL 124 MG/DL (<150); URIC ACID 5.5 MG/DL (3.5-7.2)
[2021-02-23 12:59] LABS: PROSTATIC SPECIFIC AG MONITOR < 0.01 NG/ML (< 4.00)
== END ==
LOC: M WUC 09:27
PROVIDERS: ATTEND Family Medicine
DX: C61 Malignant neoplasm of prostate (principal); I10 Essential (primary) hypertension; M10.9 Gout, unspecified

== ENCOUNTER → 2021-08-18 | Outpatient (CLI) | payer MEDICARE, OTHER ==
[2021-08-18 12:39] LABS: HEMATOCRIT 38.4 % (42.0-52.0); HEMOGLOBIN 12.3 g/dl (13.5-17.5); MEAN CORPUSCULAR HEMOGLOBIN 31.5 pg (27.0-33.0); MEAN CORPUSCULAR VOLUME 98.2 fl (80.0-96.0); PLATELET COUNT, AUTOMATED 147 10^3/uL (150-450); RED BLOOD COUNT 3.91 10^6/uL (4.30-6.10); WHITE BLOOD COUNT 7.8 10^3/uL (4.0-10.0)
[2021-08-18 13:03] LABS: BILIRUBIN,TOTAL 0.7 MG/DL (0.2-1.0); CALCIUM LEVEL 9.1 MG/DL (8.8-10.2); CREATININE FOR GFR 1.3 MG/DL (0.70-1.30); GLOMERULAR FILTRATION RATE 57.4 (>42); POTASSIUM SERUM 4.5 MEQ/L (3.5-5.1); TOTAL PROTEIN 7.3 GM/DL (6.4-8.2); URIC ACID 5.8 MG/DL (3.5-7.2)
== END ==
LOC: M WUC 08:59
PROVIDERS: ATTEND Family Medicine
DX: M10.9 Gout, unspecified (principal); I10 Essential (primary) hypertension; M25.511 Pain in right shoulder

== ENCOUNTER → 2021-10-27 | Outpatient (CLI) | payer MEDICARE, OTHER | LOC: M WUC 10:00 | PROVIDERS: ATTEND Physician Assistant | DX: I48.21 Permanent atrial fibrillation (principal) ==

== ENCOUNTER → 2022-07-21 | Outpatient (CLI) | payer MEDICARE, OTHER ==
[~2022-07-21] MED LIST changes: -K-TA10TA2 PO; +MONT-5 PO; +POTA-165 PO; -SING10TA32 PO
[2022-07-21 16:50] LABS: BASO % 0.5 % (0.0-1.0); EOS # 0.3 10^3/uL (0.0-0.5); EOS % 4.3 % (0.0-3.0); HEMATOCRIT 38.9 % (42.0-52.0); HEMOGLOBIN 12.3 g/dl (13.5-17.5); LYMPH # 0.9 10^3/uL (1.5-5.0); LYMPH % 11.9 % (24.0-44.0); MEAN CORPUSCULAR HEMOGLOBIN 31.4 pg (27.0-33.0); MEAN CORPUSCULAR HGB CONC 31.6 g/dl (32.0-36.5); MEAN CORPUSCULAR VOLUME 99.2 fl (80.0-96.0); MONO # 0.7 10^3/uL (0.0-0.8); NEUTROPHILS # 5.9 10^3/uL (1.5-8.5); NEUTROPHILS % 73.7 % (36.0-66.0); PLATELET COUNT, AUTOMATED 173 10^3/uL (150-450); RED BLOOD COUNT 3.92 10^6/uL (4.30-6.10); WHITE BLOOD COUNT 7.9 10^3/uL (4.0-10.0)
[2022-07-21 17:11] LABS: ALBUMIN 3.9 G/DL (3.2-5.2); BILIRUBIN,TOTAL 0.6 MG/DL (0.3-1.2); CALCIUM LEVEL 9.7 MG/DL (8.3-10.6); CREATININE FOR GFR 1.28 MG/DL (0.70-1.30); GLOMERULAR FILTRATION RATE 58.5 (>42); POTASSIUM SERUM 4.4 MMOL/L (3.5-5.1); TOTAL PROTEIN 7.2 G/DL (5.7-8.2)
== END ==
LOC: M WUC 12:16
PROVIDERS: ATTEND Family Medicine
DX: I11.0 Hypertensive heart disease with heart failure (principal); I50.40 Unspecified combined systolic (congestive) and diastolic (congestive) heart failure; R06.02 Shortness of breath; Z95.0 Presence of cardiac pacemaker; R91.8 Other nonspecific abnormal finding of lung field